=== PATIENT | female | born 1995 | race Caucasian/White ===

== ENCOUNTER 2017-03-28 18:06 | Emergency (ER) | payer BC ==
[2017-03-28 18:14] VITALS: BP 105/76
--- NOTE | 2017-03-28 18:37 | ED ---
Lower Extremity - HPI Summary HPI Summary: 22F presents with left foot pain today. She fell a flight of stairs an ended up on the outer edge of her foot. She denies any other injury. She has not been able to ambulate. She has not taken anything for the pain. She denies any numbness or tingling. She denies any previous fracture to the area. - History of Current Complaint Chief Complaint: UCLowerExtremity Stated Complaint: FALL Time Seen by Provider: 03/28/17 18:22 Hx Last Menstrual Period: now - Allergies/Home Medications Allergies/Adverse Reactions: Allergies Allergy/AdvReac Type Severity Reaction Status Date / Time No Known Allergies Allergy Verified 03/28/17 18:14 PMH/Surg Hx/FS Hx/Imm Hx Endocrine/Hematology History: Denies: Hx Diabetes, Hx Thyroid Disease Cardiovascular History: Denies: Hx Hypertension Respiratory History: Denies: Hx Asthma, Hx Chronic Obstructive Pulmonary Disease (COPD) GI History: Denies: Hx Ulcer Musculoskeletal History: Reports: Other Musculoskeletal History - knee pain Neurological History: Reports: Other Neuro Impairments/Disorders - syncope Psychiatric History: Reports: Hx Attention Deficit Hyperactivity Disorder Denies: Hx Eating Disorder Infectious Disease History: No Infectious Disease History: Denies: Hx Hepatitis, Hx Human Immunodeficiency Virus (HIV), History Other Infectious Disease, Traveled Outside the [place] in Last 30 Days - Social History Alcohol Use: None Substance Use Type: Reports: Prescribed Smoking Status (MU): Current Every Day Smoker Type: Cigarettes Amount Used/How Often: 1 ppd Review of Systems Negative: Fever Negative: Chest Pain Negative: Shortness Of Breath Positive: Myalgia - left foot pain All Other Systems Reviewed And Are Negative: Yes Physical Exam Triage Information Reviewed: Yes Vital Signs On Initial Exam: Initial Vitals Temp Pulse Resp BP Pulse Ox 98.8 F 88 18 105/76 100 03/28/17 18:11 03/28/17 18:11 03/28/17 18:11 03/28/17 18:11 03/28/17 18:11 Vital Signs Reviewed: Yes Appearance: Positive: Well-Appearing Skin: Positive: Warm, Dry Head/Face: Positive: Normal Head/Face Inspection Eyes: Positive: Normal, Conjunctiva Clear Respiratory/Lung Sounds: Positive: Clear to Auscultation, Breath Sounds Present Cardiovascular: Positive: Normal, RRR Musculoskeletal: Positive: Limited @ - left foot, Edema Left - over 5th metatarsal, Other - good pulses, capillary refill<2 secs, tenderness over left 5th metatarsal Neurological: Positive: Normal Psychiatric: Positive: Normal Diagnostics - Vital Signs Vital Signs Temp Pulse Resp BP Pulse Ox 03/28/17 18:11 98.8 F 88 18 105/76 100 - Laboratory Lab Statement: Any lab studies that have been ordered have been reviewed, and results considered in the medical decision making process. - Radiology foot Xray Interpretation: Positive (See Comments) - IMPRESSION: NONDISPLACED FRACTURE OF THE BASE OF THE FIFTH METATARSAL Radiology Interpretation Completed By: Radiologist Lower Extremity Course/Dx - Course Course Of Treatment: 22F presents with left foot pain today. She fell a flight of stairs an ended up on the outer edge of her foot. She denies any other injury. She has not been able to ambulate. She has not taken anything for the pain. She denies any numbness or tingling. She denies any previous fracture to the area. on exam tenderness over left 5th metatarsal. neurovascular intact. xray shows 5th metatarsal fracture. discussed with patient and wanted to do cam walking boot and will stay immbolizered rather than splint. crutches provided and will follow up with ortho. patient understands and agrees with plan. - Diagnoses Differential Diagnosis/HQI/PQRI: Positive: Fracture (Closed), Sprain, Strain Provider Diagnoses: Fracture of 5th metatarsal Discharge - Discharge Plan Condition: Good Disposition: HOME Prescriptions: oxyCODONE/Acetamin 5/325 MG* [Percocet 5/325 TAB*] 1 tab PO Q6H PRN #12 tab MDD 4 PRN Reason: Pain Patient Education Materials: Toe Fracture (ED) Referrals: Taras Medina MD [Medical Doctor] - Shannon Brown MD [Medical Doctor] - Additional Instructions: Use crutches and stay nonweight bearing Keep boot on area Call ortho office tomorrow to set up appointment for follow up Use ibuprofen for pain every 6 hours and use narcotic for breakthrough pain Ice, elevate Return to ED if develop any new or worsening symptoms
--- NOTE | 2017-03-28 18:42 | RAD ---
HISTORY: Left foot pain and trauma COMPARISONS: None VIEWS: 3, Frontal, lateral, and oblique views of the left foot FINDINGS: BONE DENSITY: Normal. BONES: There is a nondisplaced fracture of the base of the fifth metatarsal with articular extension JOINTS: There is no arthropathy. ALIGNMENT: There is no dislocation. SOFT TISSUES: Unremarkable. OTHER FINDINGS: None. IMPRESSION: NONDISPLACED FRACTURE OF THE BASE OF THE FIFTH METATARSAL
[2017-03-28] MEDS ORDERED: oxyCODONE/Acetamin 5/325 MG* TAB PO ONE (18:51)
[2017-03-28] MEDS ORDERED: HYDROcodone/ACETAMIN 5-325 MG* 1 TAB PO ONE (19:20)
== END 2017-03-28 19:30 | disposition home or self-care (01) ==
LOC: UCEAST 18:06
DX: S92.352A Displaced fracture of fifth metatarsal bone, left foot, initial encounter for closed fracture (principal); W10.9XXA Fall (on) (from) unspecified stairs and steps, initial encounter; Y92.9 Unspecified place or not applicable; F90.9 Attention-deficit hyperactivity disorder, unspecified type; F17.210 Nicotine dependence, cigarettes, uncomplicated
CPT/HCPCS: 99213; A9270-GY; G0463

== ENCOUNTER 2017-06-23 16:04 | Emergency (ER) | payer BC ==
--- OUTSIDE RECORDS SUMMARY | 2017-06-23 16:08 | XMS REPORT ---
:1995 External Reference #:[id number] Author Organization [employer] Address [address] [address] Phone [phone] Care Team Providers Name Role Phone Morales Goodson MD Primary Care Physician Unavailable Payers Type Date Identification Numbers Payment Provider Subscriber Commercial Effective: Policy Number: [id number] [employer] Monique Mccoy 2011 PayID: [id number] [address] [address] [place] [address] Problems Date Description Provider Status Onset: 09/13/2014 Hypermobility syndrome Frank Leary M.D. Active Onset: 09/13/2014 Chronic pain syndrome Frank Leary M.D. Active Onset: 09/13/2014 Weight decreased Frank Leary M.D. Active Onset: 09/13/2014 Multiple joint pain Frank Leary M.D. Active Onset: 07/19/2014 Joint pain Kalia Hess M.D. Active Family History Date Family Member(s) Problem(s) Comments General mother has asthma, asthma and ADHD present in siblings General Diabetes General Hypertension General Rheumatoid Arthritis Social History Type Date Description Comments Lives With Boyfriend Occupation nanny Smoking Patient is a former smoker General Hx Text Lives in her own house with roomate. Smokes 5 cigarettes daily. Does not drink. Exercises regularly. 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 Allergies, Adverse Reactions, Alerts Date Description Reaction Status Severity Comments 07/19/2014 NKDA active Medications Medication Date Status Form Strength Qnty SIG Indications Ordering Provider Ibuprofen Active Tablets 600mg 90tabs 1 by Unknown 000 mouth three times a day as needed Focalin Active Tablets 10mg po bid Unknown 000 Percocet 0 Active Unknown [address] 30mg 60caps 1 by 338.4 Frank INFANTE 015 - Part mouth Peter Leary every day 017 x 1 week the 2 qd Prednisone Hx Tablets 5mg 60tabs 2 by 719.40 Kalia 015 - mouth in Peter Hess am 015 Hydrocodone/A Hx Tab 5/325 mg 1 tab by Unknown cetominophen 000 - mouth every 8 015 hours as needed for pain Vital Signs Date Vital Result Comment 06/09/2017 Height 66 inches 5'6" Weight 112.00 lb Pain Level 0 BMI (Body Mass Index) 18.1 kg/m2 05/13/2017 Height 66 inches 5'6" Weight 112.00 lb Body Temperature 98.1 F Pain Level 0 BMI (Body Mass Index) 18.1 kg/m2 04/21/2017 Height 66 inches 5'6" Weight 112.00 lb BP Systolic 102 mmHg BP Diastolic 58 mmHg Respiratory Rate 14 /min Body Temperature 98.4 F Pain Level 0 BMI (Body Mass Index) 18.1 kg/m2 03/31/2017 Height 66 inches 5'6" Weight 112.00 lb Heart Rate 68 /min BP Systolic 100 mmHg BP Diastolic 70 mmHg Respiratory Rate 16 /min Body Temperature 98.1 F Pain Level 7 BMI (Body Mass Index) 18.1 kg/m2 09/13/2014 Height 65 inches 5'5" Weight 111.00 lb Heart Rate 80 /min BP Systolic Sitting 100 mmHg BP Diastolic Sitting 60 mmHg Pain Level 7 BMI (Body Mass Index) 18.5 kg/m2 07/19/2014 Height 65 inches 5'5" Weight 108.00 lb Heart Rate 82 /min BP Systolic Sitting 86 mmHg BP Diastolic Sitting 50 mmHg Pain Level 9 BMI (Body Mass Index) 18.0 kg/m2 Results Description No Information Procedures Date CPT Code Description Status 03/31/2017 86387 FX Metatarsal Care Completed 01/25/2014 85079 ECHO Transthoracic, Real-Time 2D With Doppler And Color Completed Flow Encounters Type Date Location Provider CPT E/M Dx Office Visit 09/13/2014 [facility]ology [facility] Frank Leary M.D. [id number] [phone] 3:00p [facility] [phone] 728.5 Office Visit 07/19/2014 2:00p [facility] Kalia Hess M.D. 60610 [phone] [facility] Plan of Care 05/13/2017 - Mmia Hernandez, [facility]-[id number] Nondisp fx of 5th metatarsal bone, l ft, 7thDFollow up:Follow up: 4 weeks
[2017-06-23 16:13] VITALS: BP 106/56
[2017-06-23] MEDS ORDERED: HYDROcodone/ACETAMIN 5-325 MG* 1 TAB PO ONE (16:19)
--- NOTE | 2017-06-23 16:25 | UC ---
Minor Trauma HPI - HPI Summary HPI Summary: Patient presents with an unremarkable past medical history. She presents one hours s/p traumatic injury in which she fell forward on out-stretched hands while snow-boarding. She reports immediate pain and noted deformity of the right wrist, and the pain radiates up the forearm. She states she is able to move her fingers, with no numbness or tingling noted. She denies any head or neck injury, or pain and denies any LOC or any other pain or injuries from the fall. - History of Current Complaint Chief Complaint: UCUpperExtremity Stated Complaint: WRIST INJURY Time Seen by Provider: 06/23/17 16:14 Hx Obtained From: Patient Hx Last Menstrual Period: 3 weeks Onset/Duration: Sudden Onset, Lasting Hours Onset Of Pain: Immediate Pain Intensity: 8 Mechanism Of Injury: Fall From A Standing Position Aggravating Factor(s): Movement Alleviating Factor(s): Nothing - Risk Factors Penetrating Injury Risk Factors: Negative - Allergies/Home Medications Allergies/Adverse Reactions: Allergies Allergy/AdvReac Type Severity Reaction Status Date / Time No Known Allergies Allergy Verified 06/23/17 16:13 PMH/Surg Hx/FS Hx/Imm Hx Previously Healthy: Yes - Surgical History Surgical History: None Surgery Procedure, Year, and Place: none - Family History Known Family History: Positive: None - Social History Occupation: Employed Full-time Alcohol Use: Occasionally Substance Use Type: Prescribed Smoking Status (MU): Current Every Day Smoker Type: Cigarettes Amount Used/How Often: 1 ppd Household Exposure Type: Cigarettes - Immunization History Most Recent Influenza Vaccination: declined Vaccination Up to Date: Yes Review of Systems Constitutional: Negative Skin: Negative Eyes: Negative ENT: Negative Respiratory: Negative Cardiovascular: Negative Gastrointestinal: Negative Genitourinary: Negative Motor: Decreased ROM, Other - pain, swelling and deformity noted at distal radius and ulnar. Neurovascular: Negative Musculoskeletal: Negative Neurological: Negative Psychological: Negative Is Patient Immunocompromised?: No All Other Systems Reviewed And Are Negative: Yes Physical Exam Triage Information Reviewed: Yes Appearance: Pain Distress Vital Signs: Initial Vital Signs Temp 99.4 F 06/23/17 16:08 Pulse 76 06/23/17 16:08 Resp 20 06/23/17 16:08 BP 106/56 06/23/17 16:08 Pulse Ox 100 06/23/17 16:08 Vital Signs Reviewed: Yes Eye Exam: Normal ENT Exam: Normal Dental Exam: Normal Neck exam: Normal Neck: Positive: 1 Respiratory Exam: Normal Cardiovascular Exam: Normal Abdominal Exam: Normal Musculoskeletal Exam: Normal Musculoskeletal: Positive: Strength Limited @, ROM Limited @, Edema @ - right wrist Neurological Exam: Normal Psychological Exam: Normal Skin Exam: Normal Minor Trauma Course/Dx - Course Course Of Treatment: global screening exam patient reported no other pain, or injiries. Patient presents s/p traumatic injury of the right wrist prior to arrival. She arrives splinted and neuro-vasc intact. The splint was removed and the wrist re-evaluated and a deformity was noted at the distal wrist, xrays did reveal a comminuted distal radial fracture, and a ulnar styliod fracture. The patient was given norco for pain, and immobilzied with a sugar-tong splint. She was re-evaluated and remained neuro-vasc intact. She was referred to ortho. Discharged in stable condition. - Differential Dx/Diagnosis Differential Diagnosis/HQI/PQRI: Fracture Provider Diagnoses: fracture radius. fracture ulnar Discharge - Discharge Plan Condition: Stable Disposition: HOME Prescriptions: Hydrocodone-Acetaminophen [[place] 5-325 mg] 1 tab PO Q6HR PRN #14 tab MDD 4 PRN Reason: fracture radius Patient Education Materials: Wrist Fracture in Adults (ED) Referrals: Hamzah RAMOS,Morales Thomas [Primary Care Provider] - Shannon Brown MD [Medical Doctor] -
--- NOTE | 2017-06-23 16:56 | RAD ---
INDICATION: Right wrist injury. TECHNIQUE: 3 views of the right wrist were obtained. FINDINGS: There is a comminuted fracture of the distal radial metaphysis. A component of the fracture extends to the distal articular margin. The fracture fragments are impacted. In addition there is slight displacement of the distal fragment relative to the proximal fragment of approximately 2 cortical diameters. There is also a fracture of the ulnar styloid process which is distracted. IMPRESSION: 1. COMMINUTED DISPLACED INTRA-ARTICULAR FRACTURE OF THE DISTAL RADIUS. 2. FRACTURE OF THE ULNAR STYLOID PROCESS.
== END 2017-06-23 17:08 | disposition home or self-care (01) ==
LOC: UCEAST 16:04
DX: S52.571A Other intraarticular fracture of lower end of right radius, initial encounter for closed fracture (principal); S52.611A Displaced fracture of right ulna styloid process, initial encounter for closed fracture; W19.XXXA Unspecified fall, initial encounter; Y92.9 Unspecified place or not applicable
CPT/HCPCS: 25600; 99213; G0463

== ENCOUNTER 2017-07-01 06:39 | Day surgery (SDC) | payer BC ==
--- NOTE | 2017-06-28 20:12 | HP ---
HISTORY AND PHYSICAL: DATE OF ADMISSION/SURGERY: 07/01/17 - [facility] SURGEON: Morales Sam MD. * (DICTATED BY JHONY SWEET) PROCEDURE: Right wrist open reduction and internal fixation. CHIEF COMPLAINT: Right wrist pain. HISTORY OF PRESENT ILLNESS: Caden was snowboarding at [place] on . She was cut off by a younger child and to avoid hitting the child, she decided to fall. When she fell, she had instantly felt pain in her right wrist. [place] then later at urgent care, at which point x-rays showed a wrist fracture and she was referred to clinic. PAST MEDICAL HISTORY: The patient denies any medical problems. PAST SURGICAL HISTORY: No previous surgeries. MEDICATIONS: The patient is taking, 1. Focalin 10 mg b.i.d. 2. Hydrocodone p.r.n. for pain. ALLERGIES: No known drug allergies. No allergies to tape or adhesives. FAMILY HISTORY: Sister is borderline diabetic. SOCIAL HISTORY: She smokes tobacco, 1 pack per day. She drinks alcohol about 1 drink per week. Illicit drug use, she denies. REVIEW OF SYSTEMS: Positive for her current complaint as well as a history of anemia. She endorses being able to walk a flight of stairs or a city block with no problems. She denies any history of DVT, PE or anesthesia problems. Otherwise, a 14-point review of systems including HEENT, integumentary, cardiothoracic, pulmonary, GI, , neuro, endocrine, hematologic, musculoskeletal, ID were negative. PHYSICAL EXAMINATION GENERAL: Caden is a well-nourished, well-developed 22-year-old female in no acute distress. She is alert and oriented x3. She ambulates without a limp. She has no gross neurologic deficiencies. She has normal mood and affect. VITAL SIGNS: Height 65.5 inches, weight 120 pounds. Pulse 76, blood pressure 90/58, temperature 98.6. Pain level 10/10. BMI 19.7. HEENT: Normocephalic, atraumatic, pupils equally round and reactive to light, extraocular movements intact. NECK: Supple. No palpable cervical lymph nodes. Thyroid is smooth and nontender. PULMONARY: Lungs clear to auscultation bilaterally with no wheezes, rales or rhonchi. CARDIAC: Regular rate and rhythm with no murmurs, rubs or gallops, no pedal edema, 2+ radial pulses bilaterally. ABDOMEN: Soft and nontender. NEUROLOGIC: Sensation intact to light touch at the right first dorsal webspace , volar, index and long finger, and ulnar aspect of the fifth finger on the right hand. MUSCULOSKELETAL: Right wrist skin is intact. There is swelling at the wrist that extends into the hand. There is no closed deformity. She is very tender to palpation along the radial side of her wrist. She is able to move her fingers and thumb with some pain. STUDIES: Multiple views of the right wrist were reviewed in clinic which showed a comminuted radius which extends into the joint. IMPRESSION: Right radial fracture. PLAN: Caden is scheduled to undergo right wrist open reduction internal fixation with Dr. Morales Sam on 07/01/17. She will return to clinic in 7 to 10 days for postoperative followup and suture removal. Additional pain medication will be prescribed to the patient's pharmacy of record for postoperative management on her day of surgery. JHONY SWEET [id number]/[facility] #: [id number] LEIGH ANN
[~2017-07-01 06:39] MED LIST: Buffered Lidocaine 0.9% SYRIN* 5 ML/SYR SYRINGE INTRADERM ONE; Dexamethasone IV* 4 MG/ML 1 ML (4 MG) IV SLOW PU ONE; Dexamethasone IV* 4 MG/ML 1 ML (4 MG) ONE; Famotidine IV* 10 MG/ML 2 ML (20 mg) IV ONE; Famotidine IV* 10 MG/ML 2 ML (20 mg) ONE; Levalbuterol 0.63MG/3ML NEB* UNIT OF USE INH ONE
[2017-07-01] MEDS ORDERED: ceFAZolin 2 GM PREMIX (*) 2 GM/50 ML BAG IVPB ONE (06:55)
[2017-07-01] MEDS ORDERED: Levalbuterol 0.63MG/3ML NEB* UNIT OF USE INH ONE (07:11)
[2017-07-01] MEDS ORDERED: Bupivacaine 0.25% SDV* 30 ML ONE (07:22)
[2017-07-01] MEDS ORDERED: fentaNYL* 50 MCG/ML 5 ML VIAL (250 MCG VIAL) ONE (07:23)
[2017-07-01] MEDS ORDERED: Midazolam* 1 MG/ML 2 ML VIAL (2 MG) ONE (07:23)
[2017-07-01] MEDS ORDERED: Lidocaine 2% PF * 5 ML VIAL ONE (07:24)
[2017-07-01] MEDS ORDERED: Ketorolac INJ* 30 MG/ML 1 ML VIAL ONE (07:24)
[2017-07-01] MEDS ORDERED: Ondansetron INJ* 2 MG/ML VIAL ONE (07:24)
[2017-07-01] MEDS ORDERED: Propofol* 10 MG/ML 20 ML BTL IV PUSH ONE (07:24)
[2017-07-01] MEDS ORDERED: Atracurium* 10 MG/ML 10 ML VIAL ONE (07:35)
[2017-07-01] MEDS ORDERED: oxyCODONE/Acetamin 5/325 MG* TAB PO PRN (08:20)
[2017-07-01] MEDS ORDERED: Ondansetron INJ* 2 MG/ML VIAL IV PRN (08:20)
[2017-07-01] MEDS ORDERED: fentaNYL* 50 MCG/ML 2 ML VIAL (100 MCG VIAL) IV PRN (08:20)
[2017-07-01] MEDS ORDERED: DiMENhydriNATE IV* 50 MG/ML VIAL IV PUSH PRN (08:20)
[2017-07-01] MEDS ORDERED: HYDROmorphone INJ* 1 MG/ML CARPUJECT SYRINGE IV PRN (08:20)
[2017-07-01] MEDS ORDERED: Naloxone* 0.4 MG/ML 1 ML VIAL IV PRN (08:20)
[2017-07-01] MEDS ORDERED: Scopolamine 1.5 mg* PATCH TRANSDERM PRN (08:20)
[2017-07-01 09:24] VITALS: BP 110/65
[2017-07-01] MEDS ORDERED: HYDROcodone/ACETAMIN 5-325 MG* 1 TAB ONE (09:24)
--- NOTE | 2017-07-01 21:37 | OP ---
DATE OF OPERATION: 07/01/17 - [facility] DATE OF : 89 SURGEON: Morales Sam MD PASTRY COOK APPRENTICE: JHONY Lazo. An personal banking assistant was needed for the procedure to aid in positioning of the arm and retraction. ANESTHESIOLOGIST: Dr. Fernandes. ANESTHESIA: General. PRE-OP DIAGNOSIS: Right displaced distal radius fracture, intraarticular, three fragment. POST-OP DIAGNOSIS: Right displaced distal radius fracture, intraarticular, three fragment. OPERATIVE PROCEDURE: Open reduction internal fixation right intraarticular three fragment distal radius fracture. INDICATIONS: Caden had a displaced fracture. She is quite young. We had talked about her options. She had wanted to proceed with surgery. She understands the risks and benefits. ESTIMATED BLOOD LOSS: 2 mL. COMPLICATIONS: None. FINDINGS: As expected. DESCRIPTION OF PROCEDURE: Caden was seen in the preoperative holding area. The correct side, site, and procedure were identified. We came back to the operating room. The arm was prepped and draped in the usual fashion. A time- out was performed. I exsanguinated the arm with the Esmarch and the tourniquet was inflated to 250 mmHg. A longitudinal incision was made over the distal FCR tendon. Dissection was carried down. The sheath was opened. Tendon was retracted ulnarly. Subsheath was opened. The EPL tendon was retracted ulnarly. The pronator quadratus was released off the radial aspect of the radius and held back transversely distally preserving the distal 3 to 4 mm of volar capsular ligaments. The fracture site was clean and the hematoma removed. The close reduction maneuver was performed with the use of a Emmett elevator. The arm was placed in 10 pounds of traction and once everything was nicely lined up, I brought in my plate. The plate was placed in a correct position on the bone and pinned in place distally and one proximal screw in the center of the middle of the oblong hole was placed. This was a 2.4 mm cortical screw. This was all from the Synthes variable angle distal radius plate set. I then brought in the fluoroscopy and confirmed the alignment of the fracture and the position of the instrumentation. I then filled the distal four holes with 2.4 mm locking screws. A second radial styloid distal screw was placed. The two proximal screws were then placed in standard fashion, these were both 2.4 mm cortical screws. The traction was let off. Final fluoroscopic imaging showed appropriate instrumentation and an excellent reduction of the fracture. The wound was irrigated out. The pronator was reapproximated with 3-0 Vicryl. The skin was closed with 4-0 Monocryl and Steri-Strips. Marcaine was infiltrated. The wound was dressed with 4x4's, sterile Webril and a cock-up wrist splint was applied. She was woken up and taken to the recovery room in stable condition. [id number]/[facility] #: [id number] [facility]OSPITALJoon
[2017-07-04] MEDS ORDERED: Scopolamine PATCH Remove* 1 NOTE MISC PATCH OFF ONE (08:21)
--- NOTE | 2017-07-05 11:13 | RAD ---
INDICATION: Traumatic fracture right wrist intraoperative reduction. COMPARISON: Comparison is made with a prior x-ray study of the right wrist from June 23, 2017. TECHNIQUE: 40 seconds of intermittent fluoroscopic guidance were provided and 5 spot films of the right wrist were obtained in the operating room. FINDINGS: The films demonstrate operative reduction internal fixation of a comminuted intra-articular fracture of the distal radius. There has been placement of a surgical metallic plate present anterior transfixed with multiple screws spanning the fracture fragments. IMPRESSION: INTRAOPERATIVE CONTROL FILMS. CPT II Codes: 6045F
== END 2017-07-01 09:59 | disposition home or self-care (01) ==
LOC: OREAST 06:39
PROVIDERS: ATTEND Orthopaedic Surgery Hand Surgery
DX: S52.571A Other intraarticular fracture of lower end of right radius, initial encounter for closed fracture (principal); M25.531 Pain in right wrist; F17.210 Nicotine dependence, cigarettes, uncomplicated; X58.XXXA Exposure to other specified factors, initial encounter
CPT/HCPCS: 76000; 81025; C1713; C1776; J0690; J1100; J1885; J2250; J2405; J2704; J3010; J7614

== ENCOUNTER 2018-01-21 16:15 | Emergency (ER) | payer BC ==
[2018-01-21] MEDS ORDERED: NS 0.9% 1000 ML* 2,000 ML IV ONE (16:37)
[2018-01-21] MEDS ORDERED: Ondansetron INJ* 2 MG/ML VIAL IV ONE (16:37)
[2018-01-21] MEDS ORDERED: Ketorolac INJ* 30 MG/ML 1 ML VIAL IV ONE (16:37)
[2018-01-21] MEDS ORDERED: methylPREDNISolone 125 MG* 2 ML VIAL ONE (16:38)
[2018-01-21] MEDS ORDERED: Ondansetron INJ* 2 MG/ML VIAL ONE (16:38)
[2018-01-21] MEDS ORDERED: Ketorolac INJ* 30 MG/ML 1 ML VIAL ONE (16:38)
[2018-01-21] MEDS ORDERED: methylPREDNISolone 125 MG* 2 ML VIAL IV ONE (16:39)
[2018-01-21 17:03] LABS: ABS Basophils 0.1 10^3/ul (0-0.2); ABS Eosinophils 0 10^3/ul (0-0.6); ABS Lymphocytes 0.6 10^3/ul (1.0-4.8); ABS Monocytes 0.6 10^3/ul (0-0.8); ABS Neutrophils 6.3 10^3/ul (1.5-7.7); ABS Nucleated RBC 0 10^3/ul; Eosinophil % 0.4 % (0-6); Hematocrit 36 % (35-47); Hemoglobin 12.2 g/dl (12.0-16.0); Lymphocyte % 8.5 % (25-47); Mean Corpuscular HGB Conc 34 g/dl (31-36); Mean Corpuscular Hemoglobin 29 pg (27-31); Mean Corpuscular Volume 86 fL (80-97); Mean Platelet Volume 8.2 um3 (7.4-10.4); Nucleated Red Blood Cells % 0; Platelet Count 229 10^3/ul (150-450); Red Blood Count 4.17 10^6/ul (4.00-5.40); Red Cell Distribution Width 14 % (10.5-15); White Blood Count 7.6 10^3/ul (3.5-10.8)
[2018-01-21 17:12] LABS: INR 1.13 (0.77-1.02)
[2018-01-21] MEDS ORDERED: Iohexol 300* (CONTRAST) 10 ML SDV IV ONE (17:45)
--- NOTE | 2018-01-21 18:25 | RAD ---
INDICATION: Pharyngeal abscess, peritonsillar abscess. COMPARISON: There are no prior studies available for comparison. TECHNIQUE: A CT scan of the neck was performed with intravenous contrast following intravenous injection of 50 ml of Omnipaque 300 nonionic contrast. Contiguous axial sections were obtained from the skull base through the lung apices. Images were reconstructed in the coronal and sagittal planes. FINDINGS: The airway is patent. The epiglottis and aryepiglottic folds appear within normal limits. No retropharyngeal soft tissue swelling is noted. There is soft tissue swelling in the subcutaneous tissues lateral to the alveolar ridges and mandible on both side of the face. No definite fluid collection or abscess is seen. The patient appears to have had 4 wisdom teeth recently removed. The tonsils appear mildly prominent on both sides. No significant enlarged lymph nodes are noted. The parotid and submandibular glands appear to be within normal limits. The thyroid gland appears normal. The lung apices appear clear. The frontal and sphenoid sinuses appear clear. There is mild mucosal thickening within the ethmoid air cells and mild to moderate mucosal thickening within the maxillary sinuses. No air-fluid levels are seen. The mastoid air cells and middle ear cavities appear clear. No significant focal osseous abnormality is seen. IMPRESSION: 1. STATUS POST RECENT REMOVAL OF 4 WISDOM TEETH. 2. BILATERAL FACIAL SOFT TISSUE SWELLING MOST CONSISTENT WITH CELLULITIS. NO SIGNIFICANT FLUID COLLECTION OR ABSCESS IS SEEN. RECOMMEND CLINICAL CORRELATION AND FOLLOW-UP. 3. 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
--- NOTE | 2018-01-21 18:34 | ED ---
Complex/Multi-Sys Presentation - HPI Summary HPI Summary: Pt is a 22 y/o F who presents to ED c/o general malaise. On at 9:00 she had her 4 wisdom teeth removed. Since then she has been vomiting and hasnt been able to keep any food down, but she is able to swallow. Rates her pain severity as a 9/10. Notes fever and syncope. Denies abdominal pain. - History Of Current Complaint Chief Complaint: EDDentalPain Time Seen by Provider: 01/21/18 16:31 Hx Obtained From: Patient Onset/Duration: Lasting Days, Still Present Severity Initially: Severe Associated Signs And Symptoms: Positive: Syncope, Vomiting, Fever, Other - general malaise. Negative: Abdominal Pain - Allergies/Home Medications Allergies/Adverse Reactions: Allergies Allergy/AdvReac Type Severity Reaction Status Date / Time No Known Allergies Allergy Verified 01/21/18 16:24 Home Medications: Home Medications HYDROcodone/ACETAMIN 5-325 MG* [[place] 5-325 TAB*] 2 tab PO Q6H PRN 01/21/18 [ History Confirmed 01/21/18] Penicillin VK 500 MG TAB(NF) [Penicillin VK 500 mg Tab] 500 mg PO QID 01/21/18 [ History Confirmed 01/21/18] PMH/Surg Hx/FS Hx/Imm Hx Endocrine/Hematology History: Reports: Hx Anemia - DX IN HER TEENS Denies: Hx Diabetes, Hx Thyroid Disease Cardiovascular History: Reports: Other Cardiovascular Problems/Disorders - STATES HAS LOW BLOOD PRESSURE Denies: Hx Hypertension, Hx Pacemaker/ICD Respiratory History: Denies: Hx Asthma, Hx Chronic Obstructive Pulmonary Disease (COPD) GI History: Denies: Hx Ulcer Musculoskeletal History: Reports: Other Musculoskeletal History - knee pain Sensory History: Denies: Hx Contacts or Glasses, Hx Hearing Aid Opthamlomology History: Denies: Hx Contacts or Glasses Neurological History: Reports: Other Neuro Impairments/Disorders - syncope- STATES RESULT OF LOW BLOOD PRESSURE- HAPPENED YEARS AGO Psychiatric History: Reports: Hx Attention Deficit Hyperactivity Disorder Denies: Hx Eating Disorder - Surgical History Surgery Procedure, Year, and Place: none Infectious Disease History: Yes Infectious Disease History: Denies: Hx Hepatitis, Hx Human Immunodeficiency Virus (HIV), History Other Infectious Disease, Traveled Outside the [place] in Last 30 Days - Family History Known Family History: Positive: Diabetes - Social History Alcohol Use: Occasionally Substance Use Type: Reports: Marijuana Substance Use Comment - Amount & Last Used: MARIJUANA- DAILY Smoking Status (MU): Heavy Every Day Tobacco Smoker Type: Cigarettes Amount Used/How Often: 1/2-1 PPD X 8 YEARS Review of Systems Positive: Fever, Other - general malaise Positive: Vomiting. Negative: Abdominal Pain Positive: Syncope All Other Systems Reviewed And Are Negative: Yes Physical Exam - Summary Physical Exam Summary: Appearance: Well appearing, no pain distress Skin: warm, dry, reflects adequate perfusion Head/face: normal Eyes: EOMI, DANISHA ENT: swelling around tooth 1, 16, 17, 32 areas Neck: supple, non-tender Respiratory: CTA, breath sounds present Cardiovascular: tachycardic, pulses symmetrical Abdomen: non-tender, soft Bowel: present Musculoskeletal: strength/ROM intact Neuro: normal, sensory motor intact, A&Ox3 Triage Information Reviewed: Yes Vital Signs On Initial Exam: Initial Vitals Temp Pulse Resp BP Pulse Ox 100.9 F 92 18 117/63 100 01/21/18 16:19 01/21/18 16:19 01/21/18 16:19 01/21/18 16:19 01/21/18 16:19 Vital Signs Reviewed: Yes Diagnostics - Vital Signs Vital Signs Temp Pulse Resp BP Pulse Ox 01/21/18 18:08 79 98 01/21/18 17:33 79 104/63 100 01/21/18 17:03 76 99/59 100 01/21/18 17:00 71 100 01/21/18 16:34 89 110/63 99 01/21/18 16:33 89 99 01/21/18 16:19 100.9 F 92 18 117/63 100 - Laboratory Lab Results: Lab Results 01/21/18 01/21/18 01/21/18 Range/Units 16:55 16:55 16:55 WBC 7.6 (3.5-10.8) 10^3/ul RBC 4.17 (4.00-5.40) 10^6/ul Hgb 12.2 (12.0-16.0) g/dl Hct 36 (35-47) % MCV 86 (80-97) fL MCH 29 (27-31) pg MCHC 34 (31-36) g/dl RDW 14 (10.5-15) % Plt Count 229 (150-450) 10^3/ul MPV 8.2 (7.4-10.4) um3 Neut % (Auto) 82.4 (38-83) % Lymph % (Auto) 8.5 L (25-47) % [place] % (Auto) 8.0 H (0-7) % Eos % (Auto) 0.4 (0-6) % Baso % (Auto) 0.7 (0-2) % Absolute Neuts (auto) 6.3 (1.5-7.7) 10^3/ul Absolute Lymphs (auto) 0.6 L (1.0-4.8) 10^3/ul Absolute Monos (auto) 0.6 (0-0.8) 10^3/ul Absolute Eos (auto) 0 (0-0.6) 10^3/ul Absolute Basos (auto) 0.1 (0-0.2) 10^3/ul Absolute Nucleated RBC 0 10^3/ul Nucleated RBC % 0 INR (Anticoag Therapy) 1.13 H (0.77-1.02) APTT 34.1 (26.0-36.3) seconds Sodium 136 (135-145) mmol/L Potassium 3.6 (3.5-5.0) mmol/L Chloride 105 (101-111) mmol/L Carbon Dioxide 25 (22-32) mmol/L Anion Gap 6 (2-11) mmol/L BUN 4 L (6-24) mg/dL Creatinine 0.58 (0.51-0.95) mg/dL Est GFR ( Amer) 157.3 (>60) Est GFR (Non-Af Amer) 130.0 (>60) BUN/Creatinine Ratio 6.9 L (8-20) Glucose 100 (70-100) mg/dL Calcium 8.9 (8.6-10.3) mg/dL Total Bilirubin 0.50 (0.2-1.0) mg/dL AST 13 (13-39) U/L ALT 10 (7-52) U/L Alkaline Phosphatase 59 (34-104) U/L Total Protein 6.2 L (6.4-8.9) g/dL Albumin 4.2 (3.2-5.2) g/dL Globulin 2.0 (2-4) g/dL Albumin/Globulin Ratio 2.1 (1-3) Result Diagrams: 01/21/18 16:55 01/21/18 16:55 Lab Statement: Any lab studies that have been ordered have been reviewed, and results considered in the medical decision making process. - CT Neck CT CT Interpretation Completed By: Radiologist - 17:09. IMPRESSION: 1. STATUS POST RECENT REMOVAL OF 4 WISDOM TEETH. 2. BILATERAL FACIAL SOFT TISSUE SWELLING MOST CONSISTENT WITH CELLULITIS. NO SIGNIFICANT FLUID COLLECTION OR ABSCESS IS SEEN. RECOMMEND CLINICAL CORRELATION AND FOLLOW-UP. 3. 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 ED Physician reviewed this report. Re-Evaluation - Re-Evaluation First Eval Re-Evaluation Time: 06:33 - Telling pt about discharge plans. Pt is agreeable with plans. Change: Improved - Pt feels better with steroids. Complex Multi-Symp Course/Dx Course Of Treatment: Pt is a 22 y/o F who presents to ED c/o general malaise. On at 9:00 she had her 4 wisdom teeth removed. Since then she has been vomiting and hasnt been able to keep any food down. Notes fever and syncope, and denies abdominal pain. Physical reveals that she is tachycardic and has swelling around tooth 1, 16, 17, and [address] and labs show no abscess and the pt feels better with steroids. Pt is given a diagnosis of tootheache, s/p tooth extraction, fever, and sore throat and is discharged home. She is told she should follow up with oral surgeon Dr. Erazo in 3 days. Pt is agreeable with this plan. - Diagnoses Differential Diagnoses/HQI/PQRI: Sepsis, Other - tooth abscess/tonsillar abscess Provider Diagnoses: Tooth ache, S/P tooth extraction, Fever, Sore throat Discharge - Sign-Out/Discharge Documenting (check all that apply): Patient Departure - Discharge - Discharge Plan Condition: Stable Disposition: HOME Prescriptions: predniSONE TAB* [Deltasone TAB*] 50 mg PO ONCE #5 tab Patient Education Materials: Fever in Adults (ED), Toothache (ED) Referrals: Hamzah RAMOS,Morales Thomas [Primary Care Provider] - 3 Days Chris Erazo MD [Doctor of Dental Medicine] - 3 Days Additional Instructions: Follow up with oral surgeon in 3 days. Return to ED for any new or worsening symptoms. - Billing Disposition and Condition Condition: STABLE Disposition: Home
[2018-01-21 18:53] VITALS: BP 105/70
== END 2018-01-21 18:52 | disposition home or self-care (01) ==
LOC: ED 16:15
DX: K08.89 Other specified disorders of teeth and supporting structures (principal); J02.9 Acute pharyngitis, unspecified; R55 Syncope and collapse; R11.10 Vomiting, unspecified; R50.9 Fever, unspecified; F17.210 Nicotine dependence, cigarettes, uncomplicated
CPT/HCPCS: 36415; 70491; 80053; 85025; 85610; 85730; 87040; 99283; J1885; J2405; J2930; Q9967

== ENCOUNTER 2019-01-26 14:25 | Emergency (ER) | payer BC ==
[2019-01-26 14:50] VITALS: BP 99/61
--- NOTE | 2019-01-26 15:12 | UC ---
Skin Complaint HPI - HPI Summary HPI Summary: 23-year-old female at 36 weeks presents with multiple bee stings yesterday. Patient states she was mowing the lawn when she ran over a hornet's nest. Patient states she was stung in her arm, legs, behind her ear and on her right hip. Patient states she has been taking Tylenol and Benadryl home. Today went to her OB for routine visit who advised her to follow up in urgent care for her bee stings. Patient denies shortness of breath, wheezing, nausea or vomiting. - History of Current Complaint Chief Complaint: UCSkin Time Seen by Provider: 01/26/19 14:47 Stated Complaint: BEE STING 8 1/2 MONTHS PREG. Hx Last Menstrual Period: 3 weeks Pain Intensity: 6 - Allergy/Home Medications Allergies/Adverse Reactions: Allergies Allergy/AdvReac Type Severity Reaction Status Date / Time No Known Allergies Allergy Verified 01/26/19 14:50 Home Medications: Home Medications Acetaminophen TAB* [Tylenol TAB*] 650 mg PO Q4H PRN 01/26/19 [History Confirmed 01/26/19] Pnv No.95/Ferrous Fum/Folic AC [ Caplet] 1 each PO DAILY 01/26/19 [ History Confirmed 01/26/19] diphenhydrAMINE HCl [Benadryl Allergy 25 MG CAP] 25 mg PO Q6H PRN 01/26/19 [ History Confirmed 01/26/19] PMH/Surg Hx/FS Hx/Imm Hx Previously Healthy: Yes - Surgical History Surgical History: Yes Surgery Procedure, Year, and Place: plates in wrists - Family History Known Family History: Positive: None, Diabetes - Social History Alcohol Use: None Substance Use Type: None Substance Use Comment - Amount & Last Used: MARIJUANA- DAILY Smoking Status (MU): Former Smoker Type: Cigarettes Amount Used/How Often: 1/2-1 PPD X 8 YEARS Household Exposure Type: Cigarettes - Immunization History Most Recent Influenza Vaccination: declined Vaccination Up to Date: Yes Review of Systems All Other Systems Reviewed And Are Negative: Yes Skin: Positive: Rash Physical Exam - Summary Physical Exam Summary: General: Well appearing, no distress Cardiovascular: Skin is well perfused Pulmonary: No respiratory distress, no tachypnea Abdomen: Non-distended Skin: Without with surrounding erythema to her right flank with mild tenderness , 6 x 5 cm area of erythema and tenderness to the right upper arm. MSK: no edema Psych: Normal affect Neuro: A&Ox3 Vital Signs: Initial Vital Signs Temp 36.7 C 01/26/19 14:43 Pulse 84 01/26/19 14:43 Resp 16 01/26/19 14:43 BP 99/61 01/26/19 14:43 Pulse Ox 100 01/26/19 14:43 Course/Dx - Course Course Of Treatment: 23-year-old female at 36 weeks presents after multiple bee stings yesterday - well-appearing with no signs of systemic allergic reaction. Patient taking Tylenol and Benadryl home for pain. States she feels comfortable continuing this. Right arm with 5 cm of erythema, likely secondary to local allergic reaction from bee sting. Patient advised to keep an eye on her right arm and return for worsening pain, erythema, fevers or chills. - Diagnoses Provider Diagnosis: Bee sting Discharge - Sign-Out/Discharge Documenting (check all that apply): Patient Departure All imaging exams completed and their final reports reviewed: Yes - Discharge Plan Condition: Stable Disposition: HOME Patient Education Materials: Insect Bite or Sting (ED) Referrals: Hamzah RAMOS,Morales Thomas [Primary Care Provider] - Additional Instructions: You were seeen at urgent care for multiple bee stings. Please continue Tylenol and Benadryl home. Please call attention for worsening pain, swelling to the right arm, fevers or if you are concerned. Please follow up with your primary care doctor in 2-3 days. It was a pleasure taking care of you today. - Billing Disposition and Condition Condition: STABLE Disposition: Home
== END 2019-01-26 15:30 | disposition home or self-care (01) ==
LOC: UCEAST 14:25
DX: O26.893 Other specified pregnancy related conditions, third trimester (principal); S70.261A Insect bite (nonvenomous), right hip, initial encounter; S80.862A Insect bite (nonvenomous), left lower leg, initial encounter; S40.861A Insect bite (nonvenomous) of right upper arm, initial encounter; S80.861A Insect bite (nonvenomous), right lower leg, initial encounter; W57.XXXA Bitten or stung by nonvenomous insect and other nonvenomous arthropods, initial encounter; Y93.H1 Activity, digging, shoveling and raking; Y92.017 Garden or yard in single-family (private) house as the place of occurrence of the external cause; Y99.8 Other external cause status; Z3A.36 36 weeks gestation of pregnancy; Z87.891 Personal history of nicotine dependence
CPT/HCPCS: 99211; G0463

== ENCOUNTER 2019-03-02 16:01 | Inpatient (IN) | payer BC ==
--- NOTE | 2019-03-02 16:35 | HP ---
General Information - Reason for Visit Leaking of clear fluid since 7:30AM, contractions every 10 minutes for 1 hr. - General Information Maternal Age: 23 Grav: 1 Para: 0 SAB: 0 IEA: 0 Estimated Due Date: 02/25/19 Determined By: Early Ultrasound Maternal Blood Type and Rh: O Positive - Results this Serology/RPR Result: Non-Reactive Rubella Result: Immune HBsAg Result: Negative HIV Result: Negative GBS Culture Result: Negative Past Medical History Pertinent Past Medical History: See Records - unknown auroimmune Pertinent Past Surgical History: See Records - 2018 plates in wrist Pertinent Family History: See Records - M: HTN; MGM: leukemia; P aunt and PGM: HTN, high chol - Antepartal Records Antepartal Records: Reviewed, Complicated by: - dilated lateral ventricle of brain (Resolved) Review of Systems Constitutional: Comfortable CV Complaint: No Respiratory: Shortness of Breath: No Gastrointestinal: No Nausea/Vomiting, Normal Bowel Movement Genitourinary: Leaking Fluid, No Dysuria, No Bleeding Musculoskeletal: No Epigastric Pain, Contractions Neurological: No Headache, No Visual Changes Movement: Normal Exam Allergies/Adverse Reactions: Allergies No Known Allergies Allergy (Verified 01/26/19 14:50) T: 98.3, BP: 116/65, P:88, O2:99%, R: 20 - Measurements Height: 5 ft 6 in Weight: 158 lb Body Mass Index (BMI): 25.4 Pre- Weight: 124 lb - Exam Breast: Breast Exam Deferred CVA: No CVA Tenderness Extremities: No Edema Heart: Normal Rhythm/Heart Sounds HEENT: No Significant Findings Lungs: Clear Bilaterally Rectal: Rectal Exam Deferred Reflexes: DTR 2+ Thyroid: No Thyromegaly - Abdominal Exam Abdomen Exam: Fundal Height Consistent with Dates - Ultrasound/Biophysical Profile Ultrasound Status: Not Done Targeted Exam Findings Estimated Weight: 7lbs 8oz Cervical Exam: 3cm Effacement: 80% Station: -1 Presenting Part: Vertex Membrane Status: Leaking Amniotic Fluid Evaluation: Gross Rupture Bleeding/Discharge: None EFM Findings - External Monitor Findings Baseline Heart Rate: 140 External Monitor Findings: Accelerations Present, No Pattern of Variable or Late Decelerations, Variability Moderate, Baseline Stable Contractions: Irregular, Mild, < 45 Seconds Assessment/Plan - Assessment 24 y.o. , 40w5d, SROM, Cat I NST - Plan Plan: Admit - Anticipate Vaginal Delivery - Date/Time of Admission Date of Admission: 03/02/19 Time of Admission: 04:30
[2019-03-02] MEDS ORDERED: Buffered Lidocaine 1% SYRIN* 1 ML/SYRINGE INTRADERM ONE (16:36)
[2019-03-02] MEDS ORDERED: Lactated Ringers 1000 ML Bag* 1,000 ML IV ONE (16:36)
[2019-03-02] MEDS ORDERED: Lactated Ringers 1000 ML Bag* 1,000 ML IV SCH (17:00)
[2019-03-02 17:41] LABS: Urine Benzodiazepine Screen None Detected (None Detect); Urine Opiates Screen None Detected (None Detect)
[2019-03-02] MEDS ORDERED: Misoprostol TAB* 100 MCG PO ONE (23:09)
--- NOTE | 2019-03-02 23:19 | PN ---
Progress Note - Progress Note Date of Service: 03/02/19 SOAP: Subjective: Pt reports contractions more frequent with ambulation but still irregular. Objective: FHR: 135bpm, + accels, -decels, moderate variability, cervix: 390/-1 Assessment: 24 y.o. PROM Plan: 1) Reviewed R/B of expectant mgmt versus induction of labor and mgmt optoins and pt elects for misoprostol. Reviewed R/ B of misoprosol and pt consents to continue. 2) Reevaluate in 4 hours or sooner PRN
[2019-03-03 00:18] LABS: ABS Eosinophils 0.1 10^3/ul (0-0.6); ABS Lymphocytes 1.1 10^3/ul (1.0-4.8); ABS Monocytes 0.9 10^3/ul (0-0.8); ABS Neutrophils 8.4 10^3/ul (1.5-7.7); Eosinophil % 0.7 %; Hematocrit 29 % (35-47); Hemoglobin 9.6 g/dL (12.0-16.0); Lymphocyte % 10.3 %; Mean Corpuscular HGB Conc 34 g/dL (31-36); Mean Corpuscular Hemoglobin 27 pg (27-31); Mean Corpuscular Volume 79 fL (80-97); Mean Platelet Volume 8.9 fL (7.4-10.4); Nucleated Red Blood Cells % 0.1; Platelet Count 234 10^3/uL (150-450); Red Cell Distribution Width 14 % (10-15); White Blood Count 10.6 10^3/uL (3.5-10.8)
[2019-03-03] MEDS ORDERED: Nalbuphine* 10 MG/ML 1 ML VIAL IV PRN (01:56)
[2019-03-03] MEDS ORDERED: Promethazine INJ(RESTRICTED)* 25 MG/ML 1 ML VIAL IV PRN (01:57)
[2019-03-03] MEDS ORDERED: OBEPIDURAL* 250 ML EPIDURAL ONE (03:10)
[2019-03-03] MEDS ORDERED: fentaNYL* 50 MCG/ML 2 ML VIAL (100 MCG VIAL) ONE (03:15)
[2019-03-03] MEDS ORDERED: Sodium Citrate/Citric Acid* 15 ML UDC PO PRN (03:46)
[2019-03-03] MEDS ORDERED: Lactated Ringers 1000 ML Bag* 1,000 ML IV ONE (03:46)
[2019-03-03] MEDS ORDERED: Phenylephrine 40 MCG/ML SYRINGE IV PUSH PRN ×2 (03:46)
[2019-03-03] MEDS ORDERED: Lactated Ringers 1000 ML Bag* 1,000 ML IV SCH ×2 (04:00→17:00)
--- NOTE | 2019-03-03 05:58 | PN ---
Progress Note - Progress Note Date of Service: 03/03/19 Note: Called to room for heart rate decel into 70's for approx 7 minutes. O2 applied, BP:118/62. Cervical exam: 7-8cm/100/0. Pt positioned all the way over on her right. Returned to heart baseline. Pt comfortable from epidural, discomfort with contractions and resting well. FHR: 135bpm.
[2019-03-03] MEDS ORDERED: Oxytocin 20 UNITS in LR* LOW DOSE 1000 ml IVPB SCH (06:00)
[2019-03-03] MEDS ORDERED: Ketorolac INJ* 30 MG/ML 1 ML VIAL IV PRN (11:51)
[2019-03-03] MEDS ORDERED: PROCHLORPERAZINE INJ 5 MG/ML 2 ML VIAL IV PRN (11:51)
[2019-03-03] MEDS ORDERED: fentaNYL* 50 MCG/ML 2 ML VIAL (100 MCG VIAL) IV PRN (11:51)
[2019-03-03] MEDS ORDERED: oxyCODONE TAB* 5 MG TAB PO PRN (11:51)
[2019-03-03] MEDS ORDERED: Acetaminophen IV 1GM/100ML * 1,000 MG/100 ML VIAL IVPB ONE (11:51)
[2019-03-03] MEDS ORDERED: Naloxone* 0.4 MG/ML 1 ML VIAL IV PRN (11:51)
--- NOTE | 2019-03-03 12:03 | PN ---
Progress Note - Progress Note Date of Service: 03/03/19 SOAP: Subjective: Pt comfortable after anesthesia bolus. Reviewed mgmt options with pt and Dr. Helms reviewed R/B of C/S and recommends C/S delivery. Objective: BP:130/73, P:87, T:100.9. FHR 165bpm, + accels, moderate variability, prolonged decels into 70s, baseline from 155bpm-170bpm. cervix:8/90/-1. Assessment: 24 y.o. , 40w6d, cat II tracing, failure to progress. Plan: 1) Reviewed R/B with pt and discussed plan with Dr. Helms 2) Pt and Dr. Helms agree with plan for C/S, consents signed
[2019-03-03] MEDS ORDERED: Dexamethasone IV* 4 MG/ML 1 ML (4 MG) ONE (12:19)
[2019-03-03] MEDS ORDERED: Ondansetron INJ* 2 MG/ML VIAL ONE (12:19)
[2019-03-03] MEDS ORDERED: OXYTOCIN* 10 UNITS/ML 1 ML VIAL ONE (12:19)
[2019-03-03] MEDS ORDERED: Chloroprocaine 3%* 20 ML VIAL ONE ×2 (12:19→14:53)
[2019-03-03] MEDS ORDERED: NS 0.9% 50 ML* 50 ML with ceFOXitin(*) 2 GM IVPB ONE ×2 (12:31)
[2019-03-03] MEDS ORDERED: Morphine PF AMP (0.5MG/ML)* 5 MG/10 ML AMP ONE (12:49)
[2019-03-03] MEDS ORDERED: ceFOXitin 2 GM IVPREMIX* 0 GM/0 ML BAG ONE (12:55)
[2019-03-03] MEDS ORDERED: Phenylephrine 40 MCG/ML SYRINGE ONE (13:14)
--- NOTE | 2019-03-03 13:31 | PN ---
Progress Note - Progress Note Date of Service: 03/03/19 Note: Asked to evaluate and discuss with pt the option for a PCS. She has had a Cat 2 FHT with intermittent prolonged decels lasting about 2-3min and occ late decels. Generally moderate variability. She has not made significant cervical manager change about 6hrs. She also now has a maternal temp. This situation was discussed with the pt and her partner and she agrees to proceed with CS. The risks were reviewed including bleeding, infection, pain and injury to nearby organs. Consents were signed.
[2019-03-03] MEDS ORDERED: Glycerin ADULT SUPP PR PRN (16:35)
--- NOTE | 2019-03-03 16:48 | PROCNOTE ---
[facility] OB: Delivery Note - Delivery A Date of : 03/03/19 Time of : 16:39 Sex: Female Weight at : 7 lb 9 oz Gestational Age in Weeks and Days at Delivery: 40 Weeks and 6 Days Delivery Method: Spontaneous Vaginal Labor: Spontaneous Amniotic Fluid: Meconium Estimated Blood Loss: 150 Anesthesia/Analgesia: CEI for Labor, Spinal for Delivered By: Marjorie Lamar - Nursery Level of Nursery: NICU - Perineum Perineal Injury: Abrasion Only - Not Repaired Perineal Repair: By Delivering Practioner - Events Delivery Events of Note: ROM > 24 Hours Delivery Events of Note Comment: pt brought to OR for C/S, involuntary pushing noted, pt reevaluated and after 1 push was fully dilated. FHR 160, + accels, no decels and moderate variability. Discussed options with pt and pt elects to continue pushing and try for vaginal delivery. Pt pushed effectively in OR for approx 2hrs 31mins delivering spontaneously a living female in OA position to maternal abdomen. Baby with poor tone and coloring. Cord cut and baby delivered to warmer. See nurse and ear flap binder note regarding resuscitation. Perineum with abrasions only, repaired with 3.0 vicryl. 150cc EBL
[2019-03-03] MEDS: Dibucaine 1% 28.35 GM TUBE PR PRN (17:11)
[2019-03-03] MEDS: Witch Hazel PAD* JAR TOPICAL PRN (17:11)
[2019-03-03] MEDS: Ibuprofen TAB* 600 MG PO PRN ×2 (17:11→22:26)
[2019-03-03] MEDS ORDERED: Simethicone TAB* 80 MG TAB.CHEW PO SCH (17:30)
[2019-03-03] MEDS: Docusate CAP* 100 MG PO SCH (22:24)
[2019-03-04 06:41] LABS: ABS Basophils 0.1 10^3/ul (0-0.2); ABS Lymphocytes 1.2 10^3/ul (1.0-4.8); ABS Monocytes 1.5 10^3/ul (0-0.8); ABS Neutrophils 14.4 10^3/ul (1.5-7.7); Eosinophil % 0.1 %; Hematocrit 25 % (35-47); Hemoglobin 8.1 g/dL (12.0-16.0); Mean Corpuscular HGB Conc 33 g/dL (31-36); Mean Corpuscular Hemoglobin 26 pg (27-31); Mean Corpuscular Volume 79 fL (80-97); Mean Platelet Volume 8.6 fL (7.4-10.4); Platelet Count 219 10^3/uL (150-450); Red Blood Count 3.12 10^6 /uL (3.70-4.87); Red Cell Distribution Width 15 % (10-15); White Blood Count 17.2 10^3/uL (3.5-10.8)
[2019-03-04] MEDS: Docusate CAP* 100 MG PO SCH ×3 (08:51→20:53)
[2019-03-04] MEDS: Ibuprofen TAB* 600 MG PO PRN ×3 (08:51→20:54)
[2019-03-04] MEDS: Witch Hazel PAD* JAR TOPICAL PRN (10:16)
[2019-03-04] MEDS: Ferrous Gluconate TAB* 324 MG TAB PO SCH ×2 (10:16→20:54)
[2019-03-04] MEDS: Dibucaine 1% 28.35 GM TUBE PR PRN (10:16)
[2019-03-04] MEDS: OBEPIDURAL* 250 ML EPIDURAL SCH (20:40)
[2019-03-05] MEDS: Ibuprofen TAB* 600 MG PO PRN ×2 (07:34→15:52)
[2019-03-05] MEDS: Acetaminophen TAB* 325 MG PO PRN ×2 (07:35→12:47)
[2019-03-05 07:58] VITALS: BP 109/74
[2019-03-05] MEDS: OBEPIDURAL* 250 ML EPIDURAL SCH (08:56)
[2019-03-05] MEDS: Ferrous Gluconate TAB* 324 MG TAB PO SCH (09:28)
[2019-03-05] MEDS: Docusate CAP* 100 MG PO SCH ×2 (09:28→14:22)
[2019-03-05] MEDS: Witch Hazel PAD* JAR TOPICAL PRN (14:22)
[2019-03-05] MEDS: Dibucaine 1% 28.35 GM TUBE PR PRN (14:22)
== END 2019-03-05 16:16 | disposition home or self-care (01) | DRG 560 ==
LOC: MCHOBOUT 16:01 → MCHOB 16:21
PROVIDERS: ADMIT Midwife; ATTEND Midwife
PROC: 10E0XZZ Delivery of Products of Conception, External Approach (ICD-10-PCS; principal; 2019-03-03)
PROC: 0HQ9XZZ Repair Perineum Skin, External Approach (ICD-10-PCS; 2019-03-03)
DX: O48.0 Post-term pregnancy (principal); Z37.0 Single live birth; O76 Abnormality in fetal heart rate and rhythm complicating labor and delivery; O77.0 Labor and delivery complicated by meconium in amniotic fluid; O70.0 First degree perineal laceration during delivery; Z3A.40 40 weeks gestation of pregnancy
CPT/HCPCS: 36415; 80307; 85025; 86850; 86900; 86901; 88307; A9270-GY; J0694; J1100; J2300; J2400; J2405; J2550; J2590; J3010; S0191

== ENCOUNTER 2019-08-15 12:41 | Emergency (ER) | payer BC ==
[2019-08-15 13:56] VITALS: BP 114/72
--- NOTE | 2019-08-15 14:00 | UC ---
Back Pain HPI - HPI Summary HPI Summary: 24 yo female presents with back pain. She tells me that 2 days ago she was hanging up laundry in the closet and felt a pull in her lower back. Since that time has had pain with movement and touching the area. She has been applying heating packs and taking naproxen with little relief. She states she has a hx of back problems for which she usually sees a chiropractor with good relief. She is unsure if she has ever had imaging of her lower back. She gave vaginally 02/2019. Denies radiation of pain, numbness, tingling, saddle anesthesia, or dysuria. - History of Current Complaint Chief Complaint: UCBackPain Stated Complaint: BACK PAIN Time Seen by Provider: 08/15/19 14:00 Hx Obtained From: Patient Hx Last Menstrual Period: 08/15/19 Onset/Duration: Sudden Onset Timing: Constant Severity Initially: Moderate Severity Currently: Moderate Pain Intensity: 6 Pain Scale Used: 0-10 Numeric - Allergies/Home Medications Allergies/Adverse Reactions: Allergies Allergy/AdvReac Type Severity Reaction Status Date / Time No Known Allergies Allergy Verified 08/15/19 13:56 PMH/Surg Hx/FS Hx/Imm Hx - Additional Past Medical History Additional PMH: None - Surgical History Surgical History: Yes Surgery Procedure, Year, and Place: plates in wrists - Family History Known Family History: Positive: Diabetes - Social History Lives: With Family Alcohol Use: None Substance Use Type: None Substance Use Comment - Amount & Last Used: MARIJUANA- DAILY Smoking Status (MU): Former Smoker Type: Cigarettes Amount Used/How Often: 1/2-1 PPD X 8 YEARS Household Exposure Type: Cigarettes - Immunization History Most Recent Influenza Vaccination: declined Most Recent Pneumonia Vaccination: none Vaccination Up to Date: Yes Review of Systems All Other Systems Reviewed And Are Negative: No Constitutional: Positive: Negative Skin: Positive: Negative Respiratory: Positive: Negative Cardiovascular: Positive: Negative Neurovascular: Positive: Negative Musculoskeletal: Positive: Other: - Back pain Neurological/Mental Status: Positive: Negative Psychological: Positive: Negative Physical Exam - Summary Physical Exam Summary: GENERAL: NAD. WDWN. No pain distress. SKIN: No rashes, sores, lesions, or open wounds. NECK: Supple. FROM. Nontender. No lymphadenopathy. CHEST: CTAB. No r/r/w. No accessory muscle use. Breathing comfortably and in no distress. CV: RRR. Pulses intact. Cap refill <2seconds MSK: TTP over lumbar paraspinal muscles RIGHT>LEFT. Pain with flexion and extension of spine. Positive SLR b/l but RIGHT>LEFT for low back pain without radiation. Strength 5/5 B/L LEs including dorsiflexion and plantar flexion. FROM B/L LEs. No edema. NEURO: Alert. Sensations intact B/L LEs L3-S1. Reflexes intact PSYCH: Age appropriate behavior. Triage Information Reviewed: Yes Vital Signs: Initial Vital Signs Temp 98.5 F 08/15/19 13:53 Pulse 66 08/15/19 13:53 Resp 18 08/15/19 13:53 BP 114/72 08/15/19 13:53 Pulse Ox 100 08/15/19 13:53 Laboratory Tests 08/15/19 14:35 POC Urine Color Yellow POC Urine Clarity Clear POC Urine pH 5.5 POC Ur Specif [place] >= 1.030 POC Urine Protein Negative POC Ur Glucose (UA) Negative POC Urine Ketones Negative POC Urine Blood 3+ A POC Urine Nitrite Negative POC Urine Bilirubin Negative POC Urine Urobilinogen 0.2 POC U Leukocyte Esteras 1+ A Pnv No.95/Ferrous Fum/Folic AC [ Caplet] 1 each PO DAILY 01/26/19 [ History Confirmed 08/15/19] Cyclobenzaprine TAB* [Flexeril 10 MG TAB*] 10 mg PO TID PRN #15 tab 08/15/19 [Rx ] Ketorolac TAB * [Toradol TAB *] 10 mg PO TID PRN 5 Days #15 tab 08/15/19 [Rx] Vital Signs Reviewed: Yes Diagnostics - Radiology XR lumbar Radiology Interpretation Completed By: Radiologist Summary of Radiographic Findings: IMPRESSION: UNREMARKABLE RADIOGRAPHS OF THE LUMBAR SPINE Back Pain Course/Dx - Course Course Of Treatment: UA as above - pt currently on her period. No urinary symptoms. Will send for urine culture and treat if positive. XR as above. Suspect MSK strain/spasm. She was given toradol IM in the clinic for her discomfort. Will rx for ketorlac po and flexeril. Advised to rest, ice/heat, and practice gentle stretching exercises. Recheck by PCP if symptoms do not improve. - Differential Dx/Diagnosis Provider Diagnosis: Low back strain Discharge ED - Sign-Out/Discharge Documenting (check all that apply): Patient Departure All imaging exams completed and their final reports reviewed: Yes - Discharge Plan Condition: Stable Disposition: HOME Prescriptions: Cyclobenzaprine TAB* [Flexeril 10 MG TAB*] 10 mg PO TID PRN #15 tab PRN Reason: Pain - Moderate Ketorolac TAB * [Toradol TAB *] 10 mg PO TID PRN 5 Days #15 tab PRN Reason: Pain - Moderate Patient Education Materials: Low Back Strain (ED), Lower Back Exercises (ED) Forms: *Work Release Referrals: Hamzah RAMOS,Morales Thomas [Primary Care Provider] - Additional Instructions: If you develop a fever, shortness of breath, chest pain, new or worsening symptoms - please call your PCP or go to the ED immediately. Rest and continue to apply ice/heat to your back for relief DO NOT TAKE NSAIDS (ANTI INFLAMMATORY MEDICATIONS SUCH ASPIRIN, ALEVE/ NAPROXEN, MOTRIN, OR IBUPROFEN) WITH KETORLAC THESE MEDICATIONS ARE RELATED AND MAY INTERACT - Billing Disposition and Condition Condition: STABLE Disposition: Home
[2019-08-15] MEDS ORDERED: Ketorolac *IM* INJ* 60 MG/2 ML VIAL IM ONE (14:21)
== END 2019-08-15 15:08 | disposition home or self-care (01) ==
LOC: UCEAST 12:41
DX: S39.012A Strain of muscle, fascia and tendon of lower back, initial encounter (principal); Z87.891 Personal history of nicotine dependence; X50.0XXA Overexertion from strenuous movement or load, initial encounter; Y92.9 Unspecified place or not applicable
CPT/HCPCS: 72110; 81003; 87086; 96372; 99212; G0463; J1885